=== PATIENT | male | born 1950 | race Native Hawaiian/Other Pacific Islander ===

== ENCOUNTER 2020-11-25 15:13 | Outpatient (CLI) | payer OTHER | END 2020-11-25 21:31 | disposition home or self-care (01) | LOC: US 15:13 | PROVIDERS: ATTEND Nurse Practitioner | DX: R42 Dizziness and giddiness (principal) ==

== ENCOUNTER 2022-06-22 10:14 | Outpatient (CLI) | payer OTHER | END 2022-06-22 20:19 | disposition home or self-care (01) | LOC: US 10:14 | PROVIDERS: ATTEND Nurse Practitioner | DX: K31.89 Other diseases of stomach and duodenum (principal) ==